=== PATIENT | male | born 2005 | race Two or more races ===

== ENCOUNTER 2024-09-23 21:14 | Emergency (ER) | payer SELFPAY ==
--- NOTE | ~2024-09-23 | US_ITS ---
CLINICAL HISTORY: testicular pain SCROTAL ULTRASOUND ULTRASOUND ABDOMEN VASCULAR COMPLETE COMPARISON: None. FINDINGS: There is no definite evidence of epidiymitis, orchitis, or testicular torsion bilaterally. The nuclear medicine pet ct technologist questions increased vascularity within the left testis and left epididymis, but this is not convincingly demonstrated. Right testis measures 4.3 x 2.3 x 2.8 cm. Left testis measures 4.4 x 2.3 x 2.5 cm. Grayscale, spectral Doppler, and color flow analysis of the bilateral testes was performed. There are arterial and venous waveforms within both testes.There is no hydrocele or varicocele. IMPRESSION: 1. No definite evidence of epididymitis, orchitis, or testicular torsion bilaterally. The nuclear medicine pet ct technologist questions increased vascularity within the left testis and left epididymis, but this is not convincingly demonstrated. This document has been electronically signed by: Tomás Yo M.D. on 09/23/2024 23:05:45
--- NOTE | ~2024-09-23 | US_ITS ---
CLINICAL HISTORY: testicular pain SCROTAL ULTRASOUND ULTRASOUND ABDOMEN VASCULAR COMPLETE COMPARISON: None. FINDINGS: There is no definite evidence of epidiymitis, orchitis, or testicular torsion bilaterally. The automation technologist questions increased vascularity within the left testis and left epididymis, but this is not convincingly demonstrated. Right testis measures 4.3 x 2.3 x 2.8 cm. Left testis measures 4.4 x 2.3 x 2.5 cm. Grayscale, spectral Doppler, and color flow analysis of the bilateral testes was performed. There are arterial and venous waveforms within both testes.There is no hydrocele or varicocele. IMPRESSION: 1. No definite evidence of epididymitis, orchitis, or testicular torsion bilaterally. The automation technologist questions increased vascularity within the left testis and left epididymis, but this is not convincingly demonstrated. This document has been electronically signed by: Tomás Yo M.D. on 09/23/2024 23:05:45
[2024-09-23 21:24] VITALS: BP 136/88; PULSE 107; O2SAT 97
[2024-09-23 21:25] VITALS: BP 131/76; PULSE 105; RESP 20; TEMP 36.8; O2SAT 96; BMI 27.3
--- NOTE | 2024-09-23 21:36 | PC.NURSE ---
Pt declines IV line at this time.
--- NOTE | 2024-09-23 21:37 | ED_ITS ---
HPI - Male Genitourinary General Chief complaint: Urogenital-Male Stated complaint: genital/bladder pain x1hr Time Seen by Provider: 09/23/24 21:28 Source: patient Mode of arrival: ambulatory Limitations: no limitations History of Present Illness ED Provider: DR. Zuniga HPI Narrative: A 19-year-old male came in for evaluation bilateral testicular pain that started a few hours ago, declined any history of testicular trauma, no urethral discharge, no fever, chills, currently sexually not active patient declined risk for STDs. No flank pain, no blood in the urine. Related Data Allergies Allergy/AdvReac Type Severity Reaction Status Date / Time haloperidol [From Haldol] Allergy Muscle Verified 09/23/24 21:27 cramps Review of Systems 2 Review of Systems: all other systems are reviewed and are negative Constitutional: Reports as per HPI and Reports no additional constitutional complaints Eyes: Reports as per HPI and Reports no additional eye complaints Reports system reviewed and no additional complaints, except as documented Cardiovascular: Reports as per HPI and Reports no additional cardiovascular complaints Respiratory: Reports as per HPI and Reports no additional respiratory complaints Gastrointestinal: Reports as per HPI and Reports no additional gastrointestinal complaints Genitourinary: Reports no additional female genitourinary complaints Musculoskeletal: Reports no additional musculoskeletal complaints Skin/Breast: Reports system reviewed and no additional complaints, except as docu Psychiatric: Reports no additional psychiatric complaints Endocrine: Reports no additional endocrine complaints Hematologic/Lymphatic: Reports no additional hematologic/lymphatic complaints Allergic/Immunologic: Reports no additional allergic/immunologic complaints Reports system reviewed and no additional complaints, except as documented and Reports Abnormal speech present PMFSH Social History Social History Advance Directives: No Advance Directives Information Provided: No Do you have a plan to hurt others: No Plan Physical Exam 2 Vital Signs: Vital Signs: Last Vital Signs Temp 98.2 F 09/23/24 21:25 Pulse 105 H 09/23/24 21:25 Resp 20 09/23/24 21:25 BP 131/76 09/23/24 21:25 Pulse Ox 96 09/23/24 21:25 O2 Del Method Room Air 09/23/24 21:25 BMI result Body Mass Index 27.3 Vital signs have been reviewed and appear to be correct. Blood pressure elevated. Heart rate slightly elevated. Respiratory rate normal. Temperature normal. Oxygen saturation normal. Appearance: Alert. Oriented X3. No acute distress. Head: Normal external exam. Normocephalic. Atraumatic. No Garcia signs noted. No raccoon eyes noted Eyes: PERRLA. EOMI. Conjunctiva and sclera normal. Eyelids normal. ENT: TM's Normal. Pharynx normal. Uvula midline. Moist mucous membranes. No trismus noted. No drooling noted. No muffled voice noted. Neck: Normal inspection. Neck supple. FROM. No adenopathy. Thyroid Normal. No meningeal signs. No neck mass noted. CVS: Normal heart rate and rhythm. Heart sound normal. No murmurs noted. Pulses normal throughout. Respiratory: No respiratory distress. Painless inspiration. Breath sounds normal. No wheezes/rales/rhonchi noted. Chest nontender. No accessory muscle usage noted or decreased air movement noted. Abdomen: Soft and nontender. Bowel sounds normal in all 4 quadrants. No distention noted. No organomegaly noted. No visible injury noted. exam: Circumcised, sensitive scrotal exam, no redness, no hotness, +cremasteric reflex Bilaterally. Back: No CVA tenderness. Full range of motion noted. Skin: Skin warm and dry. Normal skin color. Normal skin turgor. No rashes/lesions/lacerations noted. Extremities: No lower extremity edema. Extremities exhibit normal range of motion. Extremities nontender. Neuro: Oriented X 3. Cranial nerve exam: II-XII are grossly intact No motor deficit. No sensory deficit. Reflexes normal. Course Reevaluation(s) Reevaluation #1: 19-year-old male came in for evaluation of bilateral testicular pain, low risk for STD, ultrasound was overall negative, no UTI, normal CBC and chemistry, physical exam revealed no upper abdominal tenderness, no testicular torsion, UA is not reflecting UTI or epididymitis. Will discharge to take NSAIDs if needed and follow-up with PCP. Time: 23:15 Medications Administered Discontinued Medications Generic Name Dose Route Start Last Admin Trade Name Freq PRN Reason Stop Dose Admin Ibuprofen 400 mg 09/23/24 21:39 09/23/24 21:59 Ibuprofen 400 Mg Tablet PO 09/23/24 21:40 400 mg ONCE ONE Administration Medical Decision Making Differential Diagnosis Differential Diagnoses: The differential diagnosis associated with the presentation includes ( Epididymitis, orchitis, testicular torsion, UTI, STDs, kidney stone, severe anemia, electrolyte derangement.) Admission/Observation Consideration of admission/observation: Escalation of care including admission/observation considered Lab Data MDM Lab Attestation statement: I reviewed the patient's lab results. 09/23/24 21:49 09/23/24 21:49 Labs: Lab Results 09/23/24 Range/Units 21:49 WBC 9.6 (4.8-10.8) X10*3/uL RBC 5.01 (4.60-5.80) X10*6/uL Hgb 14.2 (14.0-18.0) g/dl Hct 42.6 (42.0-52.0) % MCV 85.0 (80.0-98.0) fL MCH 28.3 (27.0-33.0) pg MCHC 33.3 (31.0-36.0) g/dl RDW 13.3 (11.0-16.0) % Plt Count 239 (160-400) X10*3/uL MPV 11.1 (9.4-12.4) fL Immature Gran % (Auto) 0.4 (0.0-0.4) % Neut % (Auto) 64.4 (45-73) % Lymph % (Auto) 25.4 (20-40) % Ellis % (Auto) 6.7 (2-11) % Eos % (Auto) 2.6 (0-4) % Baso % (Auto) 0.5 (0-2) % Lymph # (Auto) 2.4 (1.2-4.9) X10*3/uL Ellis # (Auto) 0.6 (0.1-1.2) X10*3/uL Eos # (Auto) 0.3 (0.0-0.4) X10*3/uL Baso # (Auto) 0.1 (0.0-0.2) X10*3/uL Abs Immat Gran (auto) 0.04 H (0.00-0.03) X10*3/uL Absolute Neuts (auto) 6.2 (2.0-8.3) x10*3/uL Absolute Nucleated RBC 0.000 (0.0-0.012) X10*3/uL Nucleated RBC % (auto) 0.0 (0.0-0.2) /100WBC Sodium 143 (135-145) mmol/L Potassium 3.6 (3.3-5.1) mmol/L Chloride 109 H (96-108) mmol/L Carbon Dioxide 26 (22-29) mmol/L Anion Gap 12 (12-20) BUN 17 H (9-16) mg/dL Creatinine 1.10 (0.5-1.4) mg/dL Estim Creat Clear Calc 106.2 Estimated GFR > 60 Random Glucose 110 (60-115) mg/dL Calcium 9.1 (8.4-10.2) mg/dL Total Bilirubin 0.4 (0.0-1.0) mg/dL Direct Bilirubin 0.1 (0.0-0.5) mg/dL AST 35 (5-37) U/L ALT 32 (0-40) U/L Alkaline Phosphatase 128 H (39-117) U/L Total Protein 7.2 (6.5-8.0) g/dL Albumin 4.1 (3.5-5.0) g/dL Lipase 12 (8-78) U/L Urine Color Dark Yellow Urine Appearance Clear Urine pH 5.5 (5.0-9.0) Ur Specific [place] >= 1.030 H (1.005-1.025) Urine Protein 30 (1+) H (Neg-Trace) mg/dL Urine Glucose (UA) Negative (Negative) mg/dL Urine Ketones Trace (Negative) mg/dL Urine Blood Negative (Negative) Urine Nitrite Negative (Negative) Ur Leukocyte Esterase Negative (Negative) Urine RBC 0-2 (0-2) /HPF Urine WBC 0-5 (0-5) /HPF Ur Squamous Epith Cells 0-2 (0-2) /HPF Urine Bacteria None Seen (None Seen) Hyaline Casts 3-5 (0-2) /LPF Independent Interpretation I performed an independent interpretation of an: Ultrasound ( ultrasound:o definite evidence of epididymitis, orchitis, or testicular torsion bilaterally. The remote sensing technologist questions increased vascularity within the left testis and left epididymis, but this is not convincingly demonstrated.) Radiology Impression Discussion of test interpretation with radiology: I have reviewed the radiologist's reading. Discharge Plan Discharge Clinical Impression: Pain in testicle Patient Disposition: Home, Self-Care Instructions: Testicle Pain (ED) Additional Instructions: take [id number] ibuprofen 200 mg tablet every 6 hours if needed for pain. Print Language: Hebrew
[2024-09-23 21:57] LABS: MANUAL DIFF FLAG NO
[2024-09-23] MEDS: Ibuprofen 400 MG TABLET PO (21:59)
[2024-09-23 22:01] LABS: Basophils Absolute Auto 0.1 X10*3/uL (0.0-0.2); Basophils Percent Auto 0.5 % (0-2); Eosinophils Absolute Auto 0.3 X10*3/uL (0.0-0.4); Eosinophils Percent Auto 2.6 % (0-4); Hematocrit 42.6 % (42.0-52.0); Hemoglobin 14.2 g/dl (14.0-18.0); Imm Gran Abs Auto 0.04 X10*3/uL (0.00-0.03); Imm Gran Pct Auto 0.4 % (0.0-0.4); Lymphocytes Absolute Auto 2.4 X10*3/uL (1.2-4.9); Lymphocytes Percent Auto 25.4 % (20-40); Mean Corpuscular HGB Conc 33.3 g/dl (31.0-36.0); Mean Corpuscular Hemoglobin 28.3 pg (27.0-33.0); Mean Platelet Volume 11.1 fL (9.4-12.4); Monocytes Absolute Auto 0.6 X10*3/uL (0.1-1.2); Monocytes Percent Auto 6.7 % (2-11); Neutrophils Absolute Auto 6.2 x10*3/uL (2.0-8.3); Neutrophils Percent Auto 64.4 % (45-73); Platelet Count 239 X10*3/uL (160-400); Red Blood Count 5.01 X10*6/uL (4.60-5.80); Red Cell Distribution Width 13.3 % (11.0-16.0); White Blood Count 9.6 X10*3/uL (4.8-10.8)
[2024-09-23 22:03] LABS: Appearance Urine Clear; Color Urine Dark Yellow; Glucose Urine UA Negative (Negative); Leukocyte Esterase Urine Negative (Negative); Nitrite Urine Negative (Negative); PH 5.5 (5.0-9.0); Specific Gravity - Urine >= 1.030 (1.005-1.025); UMIC TRIGGER UACC YES; Urine Blood Negative (Negative); Urine Ketones Trace mg/dL (Negative); Urine Protein 30 (1+) mg/dL (Neg-Trace)
[2024-09-23 22:05] LABS: Bacteria Urine None Seen (None Seen); RBC Urine 0-2 /HPF (0-2); Squamous Epithelial Cell Urine 0-2 /HPF (0-2); WBC Urine 0-5 /HPF (0-5)
[2024-09-23 22:11] LABS: Anion Gap 12 (12-20); Blood Urea Nitrogen 17 mg/dL (9-16); Calcium 9.1 mg/dL (8.4-10.2); Carbon Dioxide 26 mmol/L (22-29); Chloride 109 mmol/L (96-108); Creatinine Clr Calc Pharmacy 106.2; Estimated Glomerular Filt Rate > 60; Glucose Random 110 mg/dL (60-115); Potassium 3.6 mmol/L (3.3-5.1); Sodium 143 mmol/L (135-145)
[2024-09-23 22:43] LABS: Alanine Aminotransferase 32 U/L (0-40); Albumin Level 4.1 g/dL (3.5-5.0); Alkaline Phosphatase 128 U/L (39-117); Aspartate Amino Transferase 35 U/L (5-37); Bilirubin Direct 0.1 mg/dL (0.0-0.5); Bilirubin Total 0.4 mg/dL (0.0-1.0); Lipase 12 U/L (8-78); Total Protein 7.2 g/dL (6.5-8.0)
[2024-09-23 23:37] VITALS: BP 131/76; PULSE 105; RESP 20; TEMP 36.8; O2SAT 96
[2024-09-24 05:18] LABS: CT PCR NOT DETECTED (Not Detect.); NG PCR NOT DETECTED (Not Detect.)
== END 2024-09-23 23:38 | disposition home or self-care (01) ==
PROVIDERS: Emergency Provider Emergency Medicine
DX: N50.812 Left testicular pain (principal); N50.811 Right testicular pain; R10.32 Left lower quadrant pain; R39.89 Other symptoms and signs involving the genitourinary system; Z79.899 Other long term (current) drug therapy
CPT/HCPCS: 36415; 76870; 80048; 80076; 81001; 83690; 85025; 87491; 87591; 93975; 99283; 99284

== ENCOUNTER → 2024-09-23 21:36 | Outpatient (BNV) | payer SELFPAY | PROVIDERS: Emergency Provider Emergency Medicine; Visit Provider Radiology Diagnostic Radiology | DX: N50.819 Testicular pain, unspecified (principal) | CPT/HCPCS: 76870; 93975 ==